=== PATIENT | male | born 1985 | race Caucasian/White ===

== ENCOUNTER 2016-09-27 17:56 | Observation (INO) | payer OTHER ==
[2016-09-27] MEDS ORDERED: NS 1,000 ML IV ONE (18:19)
--- NOTE | 2016-09-27 18:21 | EDPHY ---
H & P Stated Complaint: immobile r/t back inj now with sob /r calf pain/r cp Time Seen by Provider: 09/27/16 18:10 HPI/ROS: CHIEF COMPLAINT: Right-sided chest pain HISTORY OF PRESENT ILLNESS: Patient is a 31-year-old man who comes to the emergency department complaining of right-sided pleuritic chest pain. He states that 3 weeks ago he injured his back and since that time has been less mobile than usual. He noticed some cramping in his right leg on Monday. It resolved with some leg stretching but then that evening he developed right-sided pleuritic chest pain that has been persistent since then. He feels mildly short of breath. He has felt warm but does not have a fever. No diaphoresis. No nausea vomiting. No cough. No upper respiratory symptoms. No significant past medical history of REVIEW OF SYSTEMS: Constitutional: denies: chills, fever, recent illness, recent injury EENTM: denies: blurred vision, double vision, nose congestion Respiratory: See HPI Cardiac: See HPI Gastrointestinal/Abdominal: denies: abdominal pain, diarrhea, nausea, vomiting, blood streaked stools Genitourinary: denies: dysuria, frequency, hematuria, pain Musculoskeletal: denies: joint pain, muscle pain Skin: denies: lesions, rash, jaundice, bruising Neurological: denies: headache, numbness, paresthesia, tingling, dizziness, weakness Hematologic/Lymphatic: denies: blood clots, easy bleeding, easy bruising Immunologic/allergic: denies: HIV/AIDS, transplant EXAM: GENERAL: Well-appearing, well-nourished and in no acute distress. HEAD: Atraumatic, normocephalic. EYES: Pupils equal round and reactive to light, extraocular movements intact, sclera anicteric, conjunctiva are normal. ENT: TMs normal, nares patent, oropharynx clear without exudates. Moist mucous membranes. NECK: Normal range of motion, supple without lymphadenopathy or JVD. LUNGS: Breath sounds clear to auscultation bilaterally and equal. No wheezes rales or rhonchi. HEART: Regular rate and rhythm without murmurs, rubs or gallops. ABDOMEN: Soft, nontender, normoactive bowel sounds. No guarding, no rebound. No masses appreciated. BACK: No CVA tenderness, no spinal tenderness, step-offs or deformities EXTREMITIES: Normal range of motion, no pitting or edema. No clubbing or cyanosis. NEUROLOGICAL: Cranial nerves II through XII grossly intact. Normal speech, normal gait. 5/5 strength, normal movement in all extremities, normal sensation PSYCH: Normal mood, normal affect. SKIN: Warm, dry, normal turgor, no visible rashes or lesions. Source: Patient Exam Limitations: No limitations - Personal History Current Tetanus/Diphtheria Vaccine: Unsure - Medical/Surgical History Hx Asthma: No Hx Chronic Respiratory Disease: No Hx Diabetes: No Hx Cardiac Disease: No Hx Renal Disease: No Hx Cirrhosis: No Hx Alcoholism: No Hx HIV/AIDS: No Hx Splenectomy or Spleen Trauma: No Other PMH: denies - Family History Significant Family History: No pertinent family hx - Social History Smoking Status: Never smoked Alcohol Use: Sober Drug Use: None Constitutional: Initial Vital Signs Temperature (C) 36.9 C 09/27/16 18:05 Heart Rate 118 H 09/27/16 18:05 Respiratory Rate 22 H 09/27/16 18:05 Blood Pressure 118/93 H 09/27/16 18:05 O2 Sat (%) 94 09/27/16 18:05 O2 Delivery Mode Room Air Allergies/Adverse Reactions: No Known Allergies Allergy (Unverified 09/27/16 18:04) Home Medications: Medication Instructions Recorded Cyclobenzaprine [Flexeril 10 MG 10 mg PO TID PRN 09/27/16 (*)] HYDROcodone/APAP 10/325 [[place] 1 tab PO Q4-6PRN PRN 09/27/16 10/325 (*)] Mesalamine [Lialda] 2.4 gm PO DAILY 09/27/16 predniSONE 20 mg PO AD 09/27/16 Medical Decision Making - Diagnostics EKG Interpretation: An EKG obtained and was read and documented in trace view. Please see trace view for full reading and report. Sinus rhythm, tachycardic S1 q.3h T3 Imaging Results: Imaging Impressions Chest/Thorax CTA 09/27/16 18:19 Impression: 1. Predominantly right-sided segmental and subsegmental pulmonary emboli. 2. Peripheral right lower lobe consolidation suggesting infarct, with a small pleural effusion. 3. Additional findings, as above. Findings discussed with Michael Philippe M.D., on September 27, 2016 at 1908 hours. ED Course/Re-evaluation: 7:00 p.m. discussed the imaging results with patient and mom. They agree to admission. Patient is still tachycardic around 113. He is not requiring oxygen. Because of his tachycardia and bilateral PEs I will admit to the hospital. 7:30 p.m. I discussed the case with Lambert who will admit to the medical service. He request Lovenox. Differential Diagnosis: Partial list of the Differential diagnosis considered include but were not limited to; PE, DVT, pneumonia, bronchitis and although unlikely based on the history and physical exam, I also considered arrhythmia, acute coronary disease , pneumothorax. Critical Care Time: Critical care time spent by me, Dr. Philippe exclusive with this patient was 35 minutes, exclusive of the PA time exclusive of procedures. The organ system that was at risk was cardiovascular/pulmonary and I gave IV fluids, imaging, blood thinners and consultation to prevent worsening of the patient's condition - Data Points Laboratory Results: Laboratory Results 09/27/16 18:15 09/27/16 18:15 09/27/16 09/27/16 09/27/16 18:24 18:15 18:15 WBC RBC Hgb POC Hgb 16.3 gm/dL gm/dL (14.5-17.3) Hct POC Hct 48 % % (42.8-50.6) MCV MCH MCHC RDW Plt Count MPV Neut % (Auto) Lymph % (Auto) [place] % (Auto) Eos % (Auto) Baso % (Auto) Nucleat RBC Rel Count Absolute Neuts (auto) Absolute Lymphs (auto) Absolute Monos (auto) Absolute Eos (auto) Absolute Basos (auto) Absolute Nucleated RBC Immature Gran % Immature Gran # PT 14.4 SEC SEC (12.0-15.0) INR 1.13 (0.83-1.16) APTT 33.7 SEC SEC (23.0-38.0) POC Sodium 135 mEq/L mEq/L (134-144) Sodium 133 mEq/L L mEq/L (134-144) POC Potassium 3.6 mEq/L mEq/L (3.3-5.0) Potassium 4.3 mEq/L mEq/L (3.5-5.2) POC Chloride 98 mEq/L mEq/L (96-108) Chloride 97 mEq/L mEq/L (97-110) Carbon Dioxide 22 mEq/l mEq/l (22-31) Anion Gap 14 mEq/L mEq/L (8-16) POC BUN 10 mg/dL mg/dL (7-23) BUN 11 mg/dL mg/dL (7-23) Creatinine 0.9 mg/dL mg/dL (0.7-1.3) POC Creatinine 0.9 mg/dL mg/dL (0.8-1.5) Estimated GFR > 60 Glucose 96 mg/dL mg/dL (70-100) POC Glucose 102 mg/dL H mg/dL (70-100) Calcium 9.7 mg/dL mg/dL (8.5-10.4) 09/27/16 18:15 WBC 19.47 10^3/uL H 10^3/uL (3.80-9.50) RBC 5.76 10^6/uL 10^6/uL (4.40-6.38) Hgb 15.9 g/dL g/dL (13.7-17.5) POC Hgb Hct 46.0 % % (40.0-51.0) POC Hct MCV 79.9 fL L fL (81.5-99.8) MCH 27.6 pg L pg (27.9-34.1) MCHC 34.6 g/dL g/dL (32.4-36.7) RDW 12.2 % % (11.5-15.2) Plt Count 376 10^3/uL 10^3/uL (150-400) MPV 9.1 fL fL (8.7-11.7) Neut % (Auto) 64.9 % % (39.3-74.2) Lymph % (Auto) 20.8 % % (15.0-45.0) [place] % (Auto) 12.1 % % (4.5-13.0) Eos % (Auto) 1.0 % % (0.6-7.6) Baso % (Auto) 0.5 % % (0.3-1.7) Nucleat RBC Rel Count 0.0 % % (0.0-0.2) Absolute Neuts (auto) 12.65 10^3/uL H 10^3/uL (1.70-6.50) Absolute Lymphs (auto) 4.05 10^3/uL H 10^3/uL (1.00-3.00) Absolute Monos (auto) 2.36 10^3/uL H 10^3/uL (0.30-0.80) Absolute Eos (auto) 0.19 10^3/uL 10^3/uL (0.03-0.40) Absolute Basos (auto) 0.09 10^3/uL 10^3/uL (0.02-0.10) Absolute Nucleated RBC 0.00 10^3/uL 10^3/uL (0-0.01) Immature Gran % 0.7 % % (0.0-1.1) Immature Gran # 0.13 10^3/uL H 10^3/uL (0.00-0.10) PT INR APTT POC Sodium Sodium POC Potassium Potassium POC Chloride Chloride Carbon Dioxide Anion Gap POC BUN BUN Creatinine POC Creatinine Estimated GFR Glucose POC Glucose Calcium Medications Given: Discontinued Medications Enoxaparin Sodium (Lovenox) 80 mg SC EDNOW ONE Stop: 09/27/16 19:32 Last Admin: 09/27/16 20:22 Dose: 80 mg Sodium Chloride (Ns) 1,000 mls @ 0 mls/hr IV ONCE ONE PRN Reason: Wide Open Stop: 09/27/16 18:20 Last Admin: 09/27/16 18:23 Dose: 1,000 mls Morphine Sulfate (Morphine) 6 mg IVP EDNOW ONE Stop: 09/27/16 18:35 Last Admin: 09/27/16 18:41 Dose: 6 mg Ondansetron HCl (Zofran) 4 mg IVP EDNOW ONE Stop: 09/27/16 18:35 Last Admin: 09/27/16 18:42 Dose: 4 mg Point of Care Test Results: 09/27/16 18:24 POC Sodium 135 POC Potassium 3.6 POC Chloride 98 POC BUN 10 POC Creatinine 0.9 POC Glucose 102 H Departure - Departure Disposition: [facility] Clinical Impression: Pulmonary embolism Qualifiers: Pulmonary embolism type: other Chronicity: acute Acute cor pulmonale presence: without acute cor pulmonale Qualified Code(s): I26.99 - Other pulmonary embolism without acute cor pulmonale Condition: Fair
[2016-09-27 18:26] LABS: % IMMATURE GRANULYOCYTES 0.7 % (0.0-1.1); ABSOLUTE IMMATURE GRANULOCYTES 0.13 10^3/uL (0.00-0.10); ADD DIFF? NO; ADD MORPH? NO; ADD SCAN? NO; ATYPICAL LYMPHOCYTE FLAG 0 (0-99); FRAGMENT RBC FLAG 0 (0-99); HEMOGLOBIN 15.9 g/dL (13.7-17.5); LEFT SHIFT FLG 10 (0-99); LIPEMIA HEMOLYSIS FLAG 90 (0-99); MEAN CELL HEMOGLOBIN 27.6 pg (27.9-34.1); MEAN CELL HEMOGLOBIN CONCENTR. 34.6 g/dL (32.4-36.7); MEAN CELL VOLUME 79.9 fL (81.5-99.8); MEAN PLATELET VOLUME 9.1 fL (8.7-11.7); PLATELET CLUMPS FLAG 0 (0-99); PLATELET COUNT 376 10^3/uL (150-400); RED BLOOD CELL COUNT 5.76 10^6/uL (4.40-6.38); RED CELL DISTRIBUTION WIDTH 12.2 % (11.5-15.2)
--- NOTE | 2016-09-27 18:26 | CPEKG ---
Heart Rate: 114 RR Interval: 526 P-R Interval: 152 QRSD Interval: 82 QT Interval: 324 QTC Interval: 447 P Brookesmith: 9 QRS Brookesmith: 76 T Wave Brookesmith: 3 EKG Severity - OTHERWISE NORMAL ECG - EKG Impression: SINUS TACHYCARDIA EKG Impression: S1 q.3h T3 Electronically Signed By: Michael Philippe 27-Sep-2016 18:35:26
[2016-09-27] MEDS ORDERED: ONDANSETRON 4 MG/2 ML VIAL IVP ONE (18:34)
[2016-09-27 18:35] LABS: INR 1.13 (0.83-1.16); PROTIME(PATIENT) 14.4 SEC (12.0-15.0)
[2016-09-27] MEDS ORDERED: IOPAMIDOL (ISOVUE 370) 100 ML BTL IV ONE (18:35)
[2016-09-27 18:36] LABS: APTT 33.7 SEC (23.0-38.0)
[2016-09-27 19:09] LABS: ANION GAP 14 mEq/L (8-16); CALCIUM 9.7 mg/dL (8.5-10.4); CARBON DIOXIDE 22 mEq/l (22-31); CHLORIDE 97 mEq/L (97-110); CREATININE 0.9 mg/dL (0.7-1.3); GLOMERULAR FILTRATION RATE > 60; GLUCOSE 96 mg/dL (70-100); POTASSIUM 4.3 mEq/L (3.5-5.2); SODIUM 133 mEq/L (134-144)
[2016-09-27] MEDS ORDERED: ENOXAPARIN 80 MG/0.8 ML SYR SC ONE (19:31)
[2016-09-27] MEDS ORDERED: ACETAMINOPHEN 325 MG TAB PO PRN (21:31)
[2016-09-27] MEDS ORDERED: ONDANSETRON 4 MG/2 ML VIAL IVP PRN (21:31)
--- NOTE | 2016-09-27 22:07 | GHP ---
[f rep st] HISTORY AND PHYSICAL DATE OF ADMISSION: 09/27/2016 CHIEF COMPLAINT: Right-sided chest pain. HISTORY OF PRESENT ILLNESS: This is a 31-year-old male with family history of blood clots. He presented to the emergency department with right-sided pleuritic chest pain. Three weeks ago he injured his back when he was twisting and heard a pop. He denies any leg weakness. He has been undergoing physical therapy, and saw his primary care provider, who gave him some pain medications. His lower back pain has been improving. On Monday, he developed some, what he described, as a cramp in his right calf. It resolved with stretching. Later on that evening, he developed some moderate- to-severe right-sided pleuritic chest pain that has been constant since the onset on Monday. He reports some mild shortness of breath. He denies any fevers or chills. He denies any cough. PAST MEDICAL HISTORY: ulcerative colitis PAST SURGICAL HISTORY: Denies. HOME MEDICATIONS: Reviewed. Refer to [facility] for details. ALLERGIES: No known drug allergies. SOCIAL HISTORY: He denies any alcohol, tobacco or illicit drug use. FAMILY HISTORY: His sister has a clot, and his been worked up by a motor and controls tester , and was not found to have any underlying predisposition for blood clots. REVIEW OF SYSTEMS: Comprehensive 10-point review of systems was done, and is negative, except for as mentioned in the HPI. PHYSICAL EXAMINATION: VITAL SIGNS: Blood pressure 135/85, pulse of 107, respiratory rate 18, O2 saturation 94% on room air. Temperature afebrile. GENERAL: No acute distress. HEAD: Normocephalic, atraumatic. EYES: PERRLA. Sclerae anicteric. MOUTH: Moist mucous membranes. NECK: Supple. No lymphadenopathy. CARDIOVASCULAR: S1, S2. Tachycardic. No JVD. No lower extremity edema. PULMONARY: Lungs are clear. No wheezes, rales, or rhonchi. ABDOMEN: Soft, nontender, nondistended. No guarding or rebound tenderness. Normoactive bowel sounds. EXTREMITIES: No clubbing or cyanosis. NEUROLOGIC: Cranial nerves 2-12 grossly intact. No focal motor or sensory deficits. SKIN: Clear. No rashes. DIAGNOSTICS: WBC is 19.47, hemoglobin 15.9, hematocrit 46, platelets 376. PT 14.4, INR 1.13. Sodium 135, potassium 3.6, chloride 98, BUN 11, creatinine 0.9 , glucose 96. EKG, which I visualized and personally interpreted, shows sinus tachycardia, rate 114 beats per minute, with no acute ischemic changes. CT angio of the chest shows predominantly right-sided segmental and subsegmental pulmonary emboli, with right lower lobe consolidation suggesting infarct. There is also diffuse fatty infiltration of the liver that was suspected. ASSESSMENT AND PLAN: This is a 31-year-old male who injured his back three weeks ago presenting with: 1. Acute right-sided segmental and subsegmental pulmonary emboli, and right lower lobe pulmonary infarction. Plan: The patient will be admitted to the medical/surgical floor where he has been started on treatment doses of low- molecular-weight heparin. I discussed oral anticoagulation options with the patient, who at this time is currently leaning towards DOACt treatment, but would like to continue to investigate this further until making a final decision. Because of this, we will defer starting warfarin. We will provide oral narcotic pain medications for his pain. 2. Incidental finding of diffuse fatty infiltration of the liver, which I did not yet discussed with the patient. Plan: We will add LFTs to the patient's morning labs. This finding should be discussed with the patient in the morning. 3. History of Ulcerative Colitis Plan: continue home medications At this time, I will defer ordering a hypercoagulable workup, but he should likely follow up with a motor and controls tester for further evaluation, given the fact that his sister is suffering from clots as well. /[id number]/MODL MTDD
[2016-09-27] MEDS: oxyCODONE IR 5 MG TAB PO PRN (22:25)
[2016-09-27] MEDS ORDERED: CYCLOBENZAPRINE 10 MG TAB PO PRN (22:33)
[2016-09-28] MEDS: oxyCODONE IR 5 MG TAB PO PRN ×5 (02:36→22:34)
[2016-09-28 05:01] LABS: % IMMATURE GRANULYOCYTES 0.7 % (0.0-1.1); ADD DIFF? NO; ADD MORPH? NO; ADD SCAN? NO; ATYPICAL LYMPHOCYTE FLAG 0 (0-99); FRAGMENT RBC FLAG 0 (0-99); HEMATOCRIT 42.8 % (40.0-51.0); HEMOGLOBIN 14.3 g/dL (13.7-17.5); LEFT SHIFT FLG 10 (0-99); LIPEMIA HEMOLYSIS FLAG 80 (0-99); MEAN CELL HEMOGLOBIN 27.3 pg (27.9-34.1); MEAN CELL HEMOGLOBIN CONCENTR. 33.4 g/dL (32.4-36.7); MEAN CELL VOLUME 81.8 fL (81.5-99.8); MEAN PLATELET VOLUME 9.2 fL (8.7-11.7); PLATELET CLUMPS FLAG 0 (0-99); PLATELET COUNT 329 10^3/uL (150-400); RED BLOOD CELL COUNT 5.23 10^6/uL (4.40-6.38); RED CELL DISTRIBUTION WIDTH 12.3 % (11.5-15.2)
[2016-09-28 05:15] LABS: ALANINE AMINOTRANSFERASE 50 IU/L (21-72); ALBUMIN 3.6 g/dL (3.5-5.0); ALKALINE PHOSPHATASE 107 IU/L (38-126); ANION GAP 8 mEq/L (8-16); ASPARTATE AMINOTRANSFERASE 26 IU/L (17-59); CALCIUM 9.1 mg/dL (8.5-10.4); CARBON DIOXIDE 27 mEq/l (22-31); CHLORIDE 100 mEq/L (97-110); CREATININE 0.9 mg/dL (0.7-1.3); GLOMERULAR FILTRATION RATE > 60; GLUCOSE 90 mg/dL (70-100); POTASSIUM 4.4 mEq/L (3.5-5.2); SODIUM 135 mEq/L (134-144); TOTAL PROTEIN 6.5 g/dL (6.3-8.2)
[2016-09-28] MEDS ORDERED: MESALAMINE 2.4 GM PO SCH ×2 (09:00)
[2016-09-28] MEDS: ENOXAPARIN 100 MG/ML SYR SC SCH ×2 (09:05→21:33)
[2016-09-28] MEDS: MESALAMINE 2.4 GM PO SCH (11:56)
--- NOTE | 2016-09-28 17:59 | HOSPPROG ---
Hospitalist Progress Note Assessment/Plan: TOTAL TIME OF THIS VISIT GREATER THAN 50 MINUTES, GREATER THAN HALF OF THAT IN COUNSELING DIAGNOSES: -Acute pulmonary embolism with pulmonary infarct but good hemodynamic stability -Family history of thromboembolic disease PLANS: - I discussed the patient's condition, diagnosis, progress, and various treatment options with the patient and his mother at the bedside at great length today. They had many questions and I think is able to answer their questions to their satisfaction. -Continue anticoagulation with Lovenox at this time -At this moment the patient is still considering his options for which oral anticoagulant to use at home -Given his young age and family history of thromboembolic disease, I think a hypercoagulable panel evaluation is warranted and I will order for tomorrow morning -limited ambulation today begin ad leonid ambulation tomorrow - if he remains stable consider discharge home tomorrow on oral anticoagulant SUBJECTIVE: some improvement in pain but still has significant pleuritic pain Not short of breath or lightheaded OBJECTIVE Vitals reviewed: stable without fever Exam: alert oriented skin warm dry color ok resps not labored lungs clear BSs heart regular abd soft nondistended nontender, bowel sounds present limbs warm, no edema iv site ok Objective: Vital Signs Temp Pulse Resp BP Pulse Ox 36.9 C 98 16 122/78 H 92 09/28/16 12:00 09/28/16 12:00 09/28/16 12:00 09/28/16 12:00 09/28/16 12:00 Laboratory Results 09/28/16 04:19 09/28/16 04:19 09/27/16 09/28/16 09/29/16 06:59 06:59 06:59 Intake Total 1750 Balance 1750 PT 14.4 SEC (12.0-15.0) 09/27/16 18:15 INR 1.13 (0.83-1.16) 09/27/16 18:15 ICD10 Worksheet Patient Problems: Problems Problem Status Onset Pulmonary embolism Acute
[2016-09-29 04:49] LABS: % IMMATURE GRANULYOCYTES 0.6 % (0.0-1.1); ABSOLUTE IMMATURE GRANULOCYTES 0.08 10^3/uL (0.00-0.10); ADD DIFF? NO; ADD MORPH? NO; ADD SCAN? NO; ATYPICAL LYMPHOCYTE FLAG 0 (0-99); FRAGMENT RBC FLAG 0 (0-99); HEMATOCRIT 43.4 % (40.0-51.0); HEMOGLOBIN 14.8 g/dL (13.7-17.5); LEFT SHIFT FLG 10 (0-99); LIPEMIA HEMOLYSIS FLAG 90 (0-99); MEAN CELL HEMOGLOBIN 27.5 pg (27.9-34.1); MEAN CELL HEMOGLOBIN CONCENTR. 34.1 g/dL (32.4-36.7); MEAN CELL VOLUME 80.7 fL (81.5-99.8); MEAN PLATELET VOLUME 9.1 fL (8.7-11.7); PLATELET CLUMPS FLAG 0 (0-99); PLATELET COUNT 351 10^3/uL (150-400); RED BLOOD CELL COUNT 5.38 10^6/uL (4.40-6.38); RED CELL DISTRIBUTION WIDTH 12.1 % (11.5-15.2)
[2016-09-29] MEDS: MESALAMINE 2.4 GM PO SCH (09:36)
[2016-09-29] MEDS: ENOXAPARIN 100 MG/ML SYR SC SCH (09:36)
[2016-09-29 12:03] VITALS: BP 130/86; PULSE 98; RESP 16; TEMP 98.2
[2016-09-29 12:04] VITALS: O2SAT 92
[2016-09-29] MEDS: oxyCODONE IR 5 MG TAB PO PRN (12:38)
--- NOTE | 2016-09-29 14:47 | PDDCSUM ---
Discharge Summary Discharge Summary: DISCHARGE SUMMARY FOLLOW-UP ITEMS: Establish care with Hematology in [place], hypercoagulable workup sent DATE OF ADMISSION: 09/27/2016 DATE OF DISCHARGE: 09/29/2016 DISCHARGE DIAGNOSES: 1. Acute pulmonary embolism, POA 2. Acute pulmonary infarct 3. Acute atelectasis 4. Acute hyponatremia CONSULTATIONS: None PROCEDURES / IMAGING: CT angiograms demonstrating right segmental and subsegmental pulmonary emboli with right lower lobe infarct, lower extremity ultrasound demonstrated no DVT CHIEF COMPLAINT: Acute right chest pain SUBJECTIVE: Patient reports that he continues to experience some discomfort with deep inspiration PHYSICAL EXAM ON DISCHARGE: Systolic blood pressure is 120, heart rate 80, afebrile this morning, satting well on room air, 92%, reduced air movement in the right base, overlying inspiratory crackles, no expiratory wheezes, no evidence of visible tachypnea LABS ON DISCHARGE: White blood cell count 58065, hemoglobin 14.8 HOSPITAL COURSE BY PROBLEM: 1. Acute pulmonary embolism. POA, right segmental and subsegmental with resultant infarct. Considered idiopathic given no evidence of deep venous thrombosis, although the patient did have a period of reduced activity which may have resulted in a DVT which has subsequently cleared and embolized. Regardless, the patient should have at least 3 months of systemic anticoagulation and then consideration of lifelong anticoagulation thereafter, pending hypercoagulable workup which has been sent. He has elected to utilize Xarelto moving forward, and bleeding risks were explained to the patient and his mother. The patient reports that he is attempting to establish Hematology care in the town in which he lives [facility]. 2. Acute pulmonary infarction. Secondary to pulmonary embolism, causing significant right-sided chest pain, provide him with a script for as needed [place], advised against regular use of nonsteroidal anti-inflammatory medication. Recommended against vigorous physical activity until he is reassessed by his primary care provider. 3. Acute atelectasis. Most likely secondary to splinting from chest pain, present on physical exam, continue to encourage deep breathing. 4. Acute hyponatremia. Most likely secondary to hypovolemia in the setting of acute pain and his aforementioned presentation, received IV fluids, resolved. DISCHARGE MEDICATIONS: Please see official discharge medication reconciliation sheet in chart , Xarelto starter pack, then 20 mg daily thereafter, [place] as needed, 20 tablets prescribed. DISCHARGE INSTRUCTIONS: Patient should follow up with primary care provider next week, then establish care in [facility] thereafter. TIME SPENT: Greater than 30 minutes were spent on direct patient care, as well as discharge planning and preparation.
[2016-09-30 14:12] LABS: THRMP DRVVT CONFIRM RATIO 0.9 ratio (0.0 - 1.1); THRMP DRVVT MIX RATIO 1.2 ratio (0.0 - 1.1)
[2016-10-03 15:00] LABS: FACTOR IX ACTIVITY 136 % (65 - 140); FACTOR VIII ACTIVITY 147 % (55 - 200); FACTOR XI ACTIVITY 127 % (55 - 150); FACTOR XII ACTIVITY 74 % (55 - 180); PTT 1:1 NORMAL PLASMA 36 sec (26 - 36); REPTILASE TIME 16 sec (14 - 23)
== END 2016-09-29 16:48 | disposition home or self-care (01) ==
LOC: OBSVTOIN 19:36 → INTOOBSV 19:36 → F3E 22:05
PROVIDERS: ADMIT Family Medicine; ATTEND Family Medicine
DX: I26.99 Other pulmonary embolism without acute cor pulmonale (principal); J98.11 Atelectasis; E87.1 Hypo-osmolality and hyponatremia
CPT/HCPCS: 71275; 93005; 93970; 96361; 96372; 96374; 96375; 99291; G0378; 81479-90; 82947-QW; 83891-91; 83896-91; 85240-90; 85250-90; 85270-90; 85280-90; 85300-90; 85635-90; 85670-90; J1650; J2405; Q9967